=== PATIENT | female | born 2005 | race Caucasian/White ===

== ENCOUNTER → 2023-03-31 | Emergency (ER) | payer MEDICAID ==
[~2023-03-31] VITALS: Ht 165.1 cm; Wt 119.0 kg
[~2023-03-31] MED LIST: CEPH500C2 MT; IBUP-2029 PO; SULF1TAB48 MT
[2023-03-31 01:10] VITALS: BP 135/78; PULSE 98; RESP 14; TEMP 98.2; O2SAT 98
== END ==
LOC: ER 00:48
DX: K65.1 Peritoneal abscess (principal); J45.909 Unspecified asthma, uncomplicated; E03.9 Hypothyroidism, unspecified
CPT/HCPCS: 10060; 99282